=== PATIENT | female | born 1940 | race African-American/Black ===

== ENCOUNTER 2020-04-26 14:57 | Inpatient (IN) | payer MEDICARE, BC ==
[~2020-04-26] VITALS: Ht 162.6 cm; Wt 53.8 kg
--- NOTE | ~2020-04-26 | EMS ---
[facility] [address] [facility] [place] [place] [address] EMS Patient Care Report Name: JONATHON SPARKS Room: [address] IN .R.#: [id number] Admission: 04/26/20 Attend Phys: Sam Juárez MD Discharge: Date of : 36 Report #: [id number] THIS REPORT FOR: //name// Report Transmitted: 04/26/2020 19:17 EMS Care Summary [facility] Jessica [place] Incident [id number] @ 04/26/2020 14:05 Incident Location [address] [place] [address] Patient JONATHON SPARKS Female, 79 Years 1940 Patient Address [id number] [place] [id number] Patient History Cerebral infarction, unspecified, Patient Allergies , Patient Medications Vitamin D, Dexilant, zonisamide, , Levetiracetam, carvedilol, Alprazolam, Chief Complaint Weakness Disposition Transported No Lights/[place] Dispatch Reason Stroke/CVA Transported To [facility] Narrative [facility] RESPONDED TO A PRIVATE RESIDENCE FOR A FEMALE POSSIBLY HAVING A CVA. EMS ARRIVED ON SCENE TO FIND A FEMALE, SITTING ON THE EDGE OF HER BED, IN NO OBVIOUS DISTRESS. THE PATIENT WAS ACCOMPANIED BY HER DAUGHTER AND A FRIEND. THE DAUGHTER ADVISED THAT THE PATIENT HAD A STROKE IN DECEMBER. PATIENT WAS NORMALLY [address] [address] EMS Patient Care Report Name: JONATHON SPARKS Room: [address] IN [facility]#: [id number] Admission: 04/26/20 Attend Phys: Sam Juárez MD Discharge: Date of : 36 Report #: [id number] ALERT AND ORIENTED AFTER THE STROKE BUT WAS NOT ALERT OF YESTERDAY. PATIENT DENIED ANY CONFUSION. PATIENT'S ONLY COMPLAINT WAS WEAKNESS IN HER LEGS BUT SHE COULD NOT SPECIFY HOW LONG. SEE TX/RX FOR TREATMENTS RENDERED. PATIENT WAS ASSISTED TO HER FEET AND PLACED IN A STAIR CHAIR. PATIENT WAS SECURED TO THE COT VIA 3 SAFETY STRAPS. PATIENT TRANSPORTED TO [facility], PER HER REQUEST. PATIENT CONDITION DID NOT CHANGE EN ROUTE. PATIENT WAS TAKEN TO ED ROOM 11 UPON ARRIVAL. PATIENT WAS ASSISTED FROM EMS COT TO ED BED. PATIENT CARE REPORT WAS GIVEN AND CARE WAS TRANSFERRED. [facility] WENT BACK IN SERVICE. END OF REPORT. Initial Vitals @14:24 @14:27P: 74,R: 19,BP: 136/73, @14:38P: 76,R: 16,BP: 125/50, @14:44P: 75,R: 19,BP: 127/49, @14:27GCS: 15, @14:38GCS: 15, @14:44GCS: 15, @14:16 @14:38Glucose: 64, Assessments @14:16MENTAL:SKIN:HEENT:LUNG SOUNDS:ABDOMEN:PELVIS//GI:EXTREMITIES:PULSE:NEURO: Impression Generalized Weakness Procedures @14:35 cc () Site: Antecubital-LeftResponse: UnchangedSucceeded@14:243-Lead ECGResponse: UnchangedSucceeded Timeline 14:04,Call Received 14:04,Dispatch Notified 14:04,Psap Call 14:05,Dispatched 14:05,En Route 14:14,On Scene 14:16,At Patient 14:16,BP: / M,PULSE: ,RR: R,SPO2: Ox,ETCO2: ,BG: ,PAIN: ,GCS: , 14:24,3-Lead ECG,Response: UnchangedSucceeded, 14:24,BP: / M,PULSE: ,RR: R,SPO2: Ox,ETCO2: ,BG: ,PAIN: ,GCS: , 14:27,BP: 136/73 M,PULSE: 74,RR: 19 R,SPO2: Ox,ETCO2: ,BG: ,PAIN: ,GCS: , 14:27,BP: / M,PULSE: ,RR: R,SPO2: Ox,ETCO2: ,BG: ,PAIN: ,GCS: 15, 14:30,Depart Scene 14:35, cc [facility]Response: UnchangedSucceeded, [place] [address] EMS Patient Care Report Name: JONATHON SPARKS Room: [address] ADM IN M.R.#: [id number] Admission: 04/26/20 Attend Phys: Sam Juárez MD Discharge: Date of : 36 Report #: [id number] 14:38,BP: 125/50 M,PULSE: 76,RR: 16 R,SPO2: Ox,ETCO2: ,BG: ,PAIN: ,GCS: , 14:38,BP: / M,PULSE: ,RR: R,SPO2: Ox,ETCO2: ,BG: ,PAIN: ,GCS: 15, 14:38,BP: / M,PULSE: ,RR: R,SPO2: Ox,ETCO2: ,B,PAIN: ,GCS: , 14:44,BP: 127/49 M,PULSE: 75,RR: 19 R,SPO2: Ox,ETCO2: ,BG: ,PAIN: ,GCS: , 14:44,BP: / M,PULSE: ,RR: R,SPO2: Ox,ETCO2: ,BG: ,PAIN: ,GCS: 15, 14:52,At Destination 15:11,Call Closed Disclaimer v1.1 Copyright 2020 [employer] This EMS Care Summary contains data elements from the applicable legal record (which may be displayed differently). It is designed to provide pertinent information for the following purposes: continuity of care, clinical quality, and state data reporting. The complete legal record is available to ED staff and administrators of the receiving hospital in [employer] Patient Tracker. All data is provided "as is."
--- NOTE | ~2020-04-26 | CON ---
[address] [address] CONSULTATION Name: JONATHON SPARKS Room: [address] IN M.R.#: [id number] Admission: 04/26/20 Attend Phys: Sam Juárez MD Discharge: Date of : 36 Report #: [id number] THIS REPORT FOR: //name// cc: Riaz Saenz MD, Eric K. MD ~ THIS REPORT FOR: //name// CC: Sam Saenz DATE OF SERVICE: 04/28/2020 HISTORY OF PRESENT ILLNESS: This is an 79-year-old female patient who was discussed with Dr. Juárez. I tried to get the history from the patient, she was not very clear about the history. Ultimately, I was able to reach the patient's daughter. She provided some history. It looks like the patient had a subdural hematoma, which was drained by albertina holes in [facility]. She had some focal seizure and she was put on Keppra. She continued to be on Keppra and when she developed bladder infections, she feels very disoriented, confused and then she becomes better from that. This has been a consistent pattern. She was admitted with some weakness and lethargy. Apparently, her left arm hurts, but she can move. She is improved today. REVIEW OF SYSTEMS: A 14-point review of system was carried out. She had some confusion of the left elbow. At one time, she had pneumonia. Has a history of rheumatoid arthritis. Workup for some possible trauma was done in [facility], I do not have that workup available to me. She does have a chronic back pain. That is all the 14-point review of system I can get. PAST MEDICAL HISTORY: Positive for albertina hole and seizures. The seizure was in relation to the subdural hematoma. FAMILY HISTORY: Unremarkable. SOCIAL HISTORY: She does not drink any alcohol. PHYSICAL EXAMINATION: It was attempted, but was difficult to carry out. She wakes up, she talk some, she was partly oriented. Cranial nerve examination 2-12 was not optimal, but I do not see any focality. It looks like she can move both sides. She was not cooperative for the sensory and motor examinations. She did not relax for the reflexes. I do not see any meningeal sign in this patient. LABORATORY DATA: She did have a CT scan, which was reviewed and that does not show [place] [address] CONSULTATION Name: JONATHON SPARKS Room: [address] IN [facility]#: [id number] Admission: 04/26/20 Attend Phys: Sam Juárez MD Discharge: Date of : 36 Report #: [id number] IMPRESSION: Pretty difficult to form in this patient. I think we need a better examination of this patient now, we will try to do that tomorrow. We should continue Keppra for the time being and decide about other workup. I spent about 50 minutes of time taking care of this patient today and majority was spent counseling, coordinating and reviewing all the records in the computer. By: 1910 [id number] Harman MD /nt
[~2020-04-26 14:57] MED LIST: ASPIRIN325 PO; AUGMENTIN 875-1 EACH PO; AUGMENTIN 875875 MG PO; BENICAR20 MG PO; BENZONATATE200 MG PO; COLACE100 MG PO; COMPAZINE10 M1; COMPAZINE10 MG PO; DEXILANT60 MG PO; DULOXETINE HCL60 MG PO; EFFEXOR XR150 MG PO; EFFEXOR75 MG; FENTANYL 1100 MCG/HR TRANSDERM; FENTANYL PA12 MCG/H1 TP; FISH OIL 1,001000 M2 PO; FLAGYL500 MG PO; FLEXERIL; FOLIC ACID1 MG; FOLIC ACID1 MG PO; FUROSEMIDE 20 M20 MG PO; HYDROCODON-ACE1 EAC8 PO; HYDROXYCHLOROQ200 M1; IMURAN 50MG TAB50 M1 PO; KLOR-CON-EF 2525 ME1 PO; LIDOCAINE 22 %/30 GM; MAGNESIUM OXID200 MG PO; MEGA MULTI FOR1 EACH PO; METHOTREXATE 22.5 M1 PO; MICROZIDE12.5 MG PO; MIRALAX17 GM PO; OLMSRTN-AMLDPN1 EACH PO; PERIDEX15 ML PO; PHENERGAN25 MG RE; PREDNISOLON5 MG/5 ML; PREDNISONE ACETATE OPHTHALMIC; PROAIR DIGIHAL90 MCG INH; PROTONIX40 M2 PO; REFRESH CELLUVI1 APP OPHTHALMIC; REMICADE 1100 MG/VIA; REMICADE 1100 MG/VIA IV; TESSALON200 MG; TOBI PODHALER28 M1; TRIAMCINOLONE10 G1; TRIBENZOR 40-11 EAC1 PO; TYLENOL325 MG PO; VENLAFAXIN75 MG/1 T2 PO; VOLTAREN GEL 1100 G1 TOP; VOLTAREN75 MG; Vitamin D2 PO; XANAX 0.25 MG0.25 MG; XANAX 0.25 MG0.25 MG PO
[2020-04-26 14:59] VITALS: BP 133/66
[2020-04-26] MEDS ORDERED: ZONEGRAN100 MG PO (15:02)
[2020-04-26] MEDS ORDERED: SINGULAIR 10 MG10 MG PO (15:03)
[2020-04-26] MEDS ORDERED: KEPPRA1000 MG PO (15:03)
[2020-04-26] MEDS ORDERED: XANAX XR1 MG PO (15:04)
[2020-04-26] MEDS ORDERED: OXYTROL FOR WO1 EACH TRANSDERM (15:04)
[2020-04-26] MEDS ORDERED: CARVEDILOL6.25 M1 PO (15:04)
--- NOTE | 2020-04-26 16:07 | EKG ---
[place] [address] ELECTROCARDIOGRAM REPORT Name: JONATHON SPARKS Room: [facility].R.#: [id number] Admission: Attend Phys: Discharge: Date of : 36 Date of Service: 04/26/20 1525 Report #: [id number] THIS REPORT FOR: //name// [facility] ED Test Date: 2020-04-26 Test Time: 15:25:30 Pat Name: JONATHON SPARKS Department: Room: Gender: F Rn Acute Dialysis: : 1940 Requested By: Lizz Robles Order Number: [id number] MD: Monroe Hicks Measurements Intervals [place] Rate: 73 P: 23 DE: 181 QRS: -43 QRSD: 85 T: 82 QT: 351 QTc: 387 Interpretive Statements Sinus rhythm Probable left atrial enlargement Left ventricular hypertrophy Inferior infarct, old Anterior Q waves, possibly due to LVH No previous ECG available for comparison Electronically Signed On 04-26-2020 16:06:49 CDT by Monroe Hicks [email or web address] <ELECTRONICALLY SIGNED> By: Monroe Hicks MD, [facility] 04/26/20 1606 1525 1525 Monroe Hicks MD, [facility] /EPI
[2020-04-26 16:16] LABS: ABSOLUTE BASOPHILS 0.1 thou/uL (0.0-0.2); ABSOLUTE EOSINOPHILS 0.4 thou/uL (0.0-0.7); ABSOLUTE LYMPHOCYTES 1.6 thou/uL (0.8-5.3); ABSOLUTE MONOCYTES 0.6 thou/uL (0.0-1.2); ABSOLUTE NEUTROPHILS 3.4 thou/uL (1.6-8.1); BASOPHILS 1.2 %; HEMATOCRIT 33.6 % (37.0-47.0); HEMOGLOBIN 10.9 gm/dL (12.0-15.0); LYMPHOCYTES 26.5 %; MCH 25.4 pg (26.0-34.0); MCHC 32.5 g/dL (28.0-37.0); MCV 78.3 fL (80.0-100.0); MONOCYTES 10.4 %; MPV 8.6 fl. (7.2-11.1); NUCLEATED RBCS 0 /100WBC; PLATELET COUNT* 207 thou/uL (150-400); POLYS 55.9 %; RBC 4.29 mil/uL (4.20-5.00); RDW-CV 14.3 % (10.5-14.5)
[2020-04-26 16:24] LABS: CALCIUM 9.3 mg/dL (8.5-10.1); CREATININE 0.9 mg/dL (0.6-1.3); POTASSIUM 3.1 mmol/L (3.5-5.1)
[2020-04-26 16:29] LABS: ALBUMIN 2.1 g/dL (3.4-5.0); TOTAL BILIRUBIN 0.3 mg/dL (<0.1-1.0); TOTAL PROTEIN 8.5 g/dL (6.4-8.2)
[2020-04-26 16:37] LABS: ACETAMINOPHEN < 2 ug/mL (10-30); ALCOHOL < 10 mg/dL (<10); SALICYLATE < 2.8 mg/dL (2.8-20.0)
[2020-04-26 16:46] LABS: URINE BILIRUBIN NEGATIVE (Negative); URINE BLOOD NEGATIVE (Negative); URINE CLARITY CLEAR; URINE COLOR YELLOW; URINE GLUCOSE-RANDOM NEGATIVE (Negative); URINE KETONES NEGATIVE (Negative); URINE LEUKOCYTES-REFLEX NEGATIVE (Negative); URINE NITRITE-REFLEX NEGATIVE (Negative); URINE PROTEIN NEGATIVE (Negative); URINE UROBILINOGEN 0.2 E.U./dl (0.2-1.0)
[2020-04-26 16:55] LABS: AMP/METHAMP Negative (Negative); BARBITURATES Negative (Negative); BENZODIAZEPINES POSITIVE (Negative); COCAINE Negative (Negative); METHADONE Negative (Negative); OPIATES Negative (Negative); PCP Negative (Negative); THC Negative (Negative)
[2020-04-26 21:51] VITALS: BP 165/75
[2020-04-26 22:06] LABS: CALCIUM 8.7 mg/dL (8.5-10.1); CREATININE 0.8 mg/dL (0.6-1.3); POTASSIUM 3.4 mmol/L (3.5-5.1)
[2020-04-26 23:02] VITALS: BP 172/85
[2020-04-27 04:00] VITALS: BP 235/126
[2020-04-27 08:00] VITALS: BP 162/80
[2020-04-27 11:27] LABS: ABSOLUTE MONOCYTES 0.5 thou/uL (0.0-1.2); ABSOLUTE NEUTROPHILS 8.4 thou/uL (1.6-8.1); BASOPHILS 0.5 %; EOSINOPHILS 0.1 %; HEMATOCRIT 37.5 % (37.0-47.0); HEMOGLOBIN 12.5 gm/dL (12.0-15.0); LYMPHOCYTES 9.7 %; MCH 26.2 pg (26.0-34.0); MCHC 33.4 g/dL (28.0-37.0); MCV 78.3 fL (80.0-100.0); MONOCYTES 4.9 %; MPV 8.1 fl. (7.2-11.1); NUCLEATED RBCS 0 /100WBC; PLATELET COUNT* 262 thou/uL (150-400); POLYS 84.8 %; RBC 4.79 mil/uL (4.20-5.00); RDW-CV 14.2 % (10.5-14.5); WBC 9.9 thou/uL (4.0-11.0)
[2020-04-27 11:48] LABS: CALCIUM 9.4 mg/dL (8.5-10.1); CREATININE 0.9 mg/dL (0.6-1.3); POTASSIUM 3.1 mmol/L (3.5-5.1)
[2020-04-27 12:08] VITALS: BP 177/94
[2020-04-27 16:00] VITALS: BP 196/103
[2020-04-27 19:35] VITALS: BP 188/102
[2020-04-28] VITALS: BP 127/67
[2020-04-28 04:00] VITALS: BP 112/60
[2020-04-28 05:42] LABS: ABSOLUTE LYMPHOCYTES 1.9 thou/uL (0.8-5.3); ABSOLUTE MONOCYTES 0.9 thou/uL (0.0-1.2); ABSOLUTE NEUTROPHILS 6.6 thou/uL (1.6-8.1); BASOPHILS 0.5 %; EOSINOPHILS 0.1 %; HEMATOCRIT 35.4 % (37.0-47.0); HEMOGLOBIN 11.6 gm/dL (12.0-15.0); LYMPHOCYTES 20.1 %; MCH 25.5 pg (26.0-34.0); MCHC 32.8 g/dL (28.0-37.0); MCV 77.7 fL (80.0-100.0); MONOCYTES 9.7 %; MPV 8.3 fl. (7.2-11.1); NUCLEATED RBCS 0 /100WBC; PLATELET COUNT* 248 thou/uL (150-400); POLYS 69.6 %; RBC 4.56 mil/uL (4.20-5.00); WBC 9.5 thou/uL (4.0-11.0)
[2020-04-28 06:06] LABS: ALBUMIN 1.9 g/dL (3.4-5.0); CALCIUM 9.3 mg/dL (8.5-10.1); CREATININE 1.2 mg/dL (0.6-1.3); TOTAL BILIRUBIN 0.3 mg/dL (<0.1-1.0); TOTAL PROTEIN 8.3 g/dL (6.4-8.2)
[2020-04-28 06:08] LABS: POTASSIUM 5.8 mmol/L (3.5-5.1)
[2020-04-28 08:00] VITALS: BP 115/57
[2020-04-28 12:00] VITALS: BP 109/55
[2020-04-28 16:03] VITALS: BP 124/60
[2020-04-28 19:30] VITALS: BP 100/49
[2020-04-29 00:26] VITALS: BP 121/53
[2020-04-29 04:44] VITALS: BP 120/60
[2020-04-29 04:55] LABS: ABSOLUTE EOSINOPHILS 0.2 thou/uL (0.0-0.7); ABSOLUTE LYMPHOCYTES 1.9 thou/uL (0.8-5.3); ABSOLUTE MONOCYTES 0.6 thou/uL (0.0-1.2); ABSOLUTE NEUTROPHILS 3.1 thou/uL (1.6-8.1); BASOPHILS 0.6 %; EOSINOPHILS 3.5 %; HEMATOCRIT 29.9 % (37.0-47.0); HEMOGLOBIN 9.9 gm/dL (12.0-15.0); LYMPHOCYTES 32.2 %; MCH 25.7 pg (26.0-34.0); MCHC 33.2 g/dL (28.0-37.0); MCV 77.5 fL (80.0-100.0); NUCLEATED RBCS 0 /100WBC; PLATELET COUNT* 177 thou/uL (150-400); POLYS 53.7 %; RBC 3.86 mil/uL (4.20-5.00); RDW-CV 13.9 % (10.5-14.5); WBC 5.8 thou/uL (4.0-11.0)
[2020-04-29 05:16] LABS: ALBUMIN 1.7 g/dL (3.4-5.0); CALCIUM 9.1 mg/dL (8.5-10.1); CREATININE 1.3 mg/dL (0.6-1.3); TOTAL BILIRUBIN 0.4 mg/dL (<0.1-1.0); TOTAL PROTEIN 7.3 g/dL (6.4-8.2)
[2020-04-29 05:37] LABS: PREALBUMIN 10.6 mg/dL (18.0-35.7)
[2020-04-29 08:00] VITALS: BP 124/65
[2020-04-29 20:00] VITALS: BP 146/67
[2020-04-30] VITALS: BP 137/60
[2020-04-30 05:48] LABS: CALCIUM 8.4 mg/dL (8.5-10.1); POTASSIUM 3.6 mmol/L (3.5-5.1)
[2020-04-30 06:34] LABS: ESR (SEDRATE) 40 mm/hr (0-30)
[2020-04-30 06:38] LABS: ABSOLUTE EOSINOPHILS 0.4 thou/uL (0.0-0.7); ABSOLUTE MONOCYTES 0.4 thou/uL (0.0-1.2); ABSOLUTE NEUTROPHILS 1.8 thou/uL (1.6-8.1); BASOPHILS 0.7 %; EOSINOPHILS 8.4 %; HEMATOCRIT 28.5 % (37.0-47.0); HEMOGLOBIN 9.3 gm/dL (12.0-15.0); LYMPHOCYTES 42.2 %; MCH 25.3 pg (26.0-34.0); MCHC 32.7 g/dL (28.0-37.0); MCV 77.3 fL (80.0-100.0); MONOCYTES 9.2 %; MPV 9.6 fl. (7.2-11.1); NUCLEATED RBCS 0 /100WBC; PLATELET COUNT* 167 thou/uL (150-400); POLYS 39.5 %; RBC 3.69 mil/uL (4.20-5.00); RDW-CV 13.7 % (10.5-14.5); WBC 4.7 thou/uL (4.0-11.0)
[2020-04-30 08:00] VITALS: BP 142/67
[2020-04-30] MEDS ORDERED: XANAX 0.25 MG0.25 MG PO (08:51)
[2020-04-30] MEDS ORDERED: LEVAQUIN 500 M500 M2 PO (08:51)
[2020-04-30 16:29] VITALS: BP 142/67
[2020-04-30 16:44] VITALS: BP 142/67
== END 2020-04-30 18:00 | DRG 177 ==
LOC: M.ERS 14:57 → M.TBA-ER 18:21 → M.2W 18:21 → M.ORTHSURG 04-30 11:24
PROVIDERS: Nurse Practitioner Family; ADMIT Internal Medicine; ATTEND Internal Medicine
DX: J69.0 Pneumonitis due to inhalation of food and vomit (principal); E43 Unspecified severe protein-calorie malnutrition; G93.41 Metabolic encephalopathy; G95.89 Other specified diseases of spinal cord; G89.29 Other chronic pain; I16.0 Hypertensive urgency; R33.9 Retention of urine, unspecified; M54.9 Dorsalgia, unspecified; Z20.828 Contact with and (suspected) exposure to other viral communicable diseases; M06.9 Rheumatoid arthritis, unspecified; I10 Essential (primary) hypertension; T42.6X5A Adverse effect of other antiepileptic and sedative-hypnotic drugs, initial encounter; Y92.89 Other specified places as the place of occurrence of the external cause; Z79.899 Other long term (current) drug therapy; Z88.5 Allergy status to narcotic agent; Z88.1 Allergy status to other antibiotic agents; Z88.2 Allergy status to sulfonamides; Z68.20 Body mass index [BMI] 20.0-20.9, adult; Z86.73 Personal history of transient ischemic attack (TIA), and cerebral infarction without residual deficits

== ENCOUNTER 2020-04-30 14:53 | Inpatient (IN) | payer MEDICARE, BC ==
[~2020-04-30] VITALS: Ht 162.6 cm; Wt 54.6 kg
[~2020-04-30 14:53] MED LIST changes: +CARVEDILOL6.25 M1 PO; +KEPPRA1000 MG PO; +LEVAQUIN 500 M500 M2 PO; +OXYTROL FOR WO1 EACH TRANSDERM; +SINGULAIR 10 MG10 MG PO; +XANAX XR1 MG PO; +ZONEGRAN100 MG PO
[2020-04-30 18:48] VITALS: BP 143/69
[2020-04-30 20:00] VITALS: BP 166/71
[2020-05-01 04:04] LABS: HEMATOCRIT 30.1 % (37.0-47.0); HEMOGLOBIN 9.8 gm/dL (12.0-15.0); MCH 24.9 pg (26.0-34.0); MCHC 32.5 g/dL (28.0-37.0); MCV 76.7 fL (80.0-100.0); MPV 7.8 fl. (7.2-11.1); RBC 3.92 mil/uL (4.20-5.00); RDW-CV 13.7 % (10.5-14.5); WBC 4.5 thou/uL (4.0-11.0)
[2020-05-01 04:24] LABS: CALCIUM 8.8 mg/dL (8.5-10.1); CREATININE 0.9 mg/dL (0.6-1.3); POTASSIUM 3.4 mmol/L (3.5-5.1)
[2020-05-01 20:24] VITALS: BP 125/68
[2020-05-02 08:30] VITALS: BP 143/62
[2020-05-02 19:00] VITALS: BP 129/72
[2020-05-03 07:56] VITALS: BP 125/69
[2020-05-03 19:00] VITALS: BP 134/74
[2020-05-04 07:57] VITALS: BP 130/68
[2020-05-04 19:00] VITALS: BP 123/68
[2020-05-05 08:11] VITALS: BP 123/48
[2020-05-05 19:30] VITALS: BP 123/57
[2020-05-06 08:00] VITALS: BP 131/59
[2020-05-06 19:58] VITALS: BP 136/77
[2020-05-07 07:30] VITALS: BP 134/70
[2020-05-07 13:25] LABS: HEMATOCRIT 30.5 % (37.0-47.0); HEMOGLOBIN 10.1 gm/dL (12.0-15.0); MCH 25.4 pg (26.0-34.0); MCHC 33.1 g/dL (28.0-37.0); MCV 76.7 fL (80.0-100.0); MPV 7.6 fl. (7.2-11.1); RBC 3.98 mil/uL (4.20-5.00); RDW-CV 13.9 % (10.5-14.5); WBC 5.9 thou/uL (4.0-11.0)
[2020-05-07 13:52] LABS: ALBUMIN 2.1 g/dL (3.4-5.0); CALCIUM 9.4 mg/dL (8.5-10.1); CREATININE 0.9 mg/dL (0.6-1.3); POTASSIUM 4.3 mmol/L (3.5-5.1); TOTAL BILIRUBIN 0.3 mg/dL (<0.1-1.0); TOTAL PROTEIN 7.8 g/dL (6.4-8.2)
[2020-05-07 20:12] VITALS: BP 141/63
[2020-05-08 07:30] VITALS: BP 129/62
[2020-05-08 08:00] VITALS: BP 129/62
[2020-05-08 20:13] VITALS: BP 128/60
[2020-05-09 07:30] VITALS: BP 134/70
[2020-05-09 08:00] VITALS: BP 134/70
[2020-05-09 19:23] VITALS: BP 129/53
[2020-05-10 07:30] VITALS: BP 131/85
[2020-05-10 10:58] LABS: URINE BILIRUBIN NEGATIVE (Negative); URINE BLOOD 2+ (Negative); URINE CLARITY CLEAR; URINE COLOR YELLOW; URINE GLUCOSE-RANDOM NEGATIVE (Negative); URINE KETONES NEGATIVE (Negative); URINE LEUKOCYTES-REFLEX TRACE (Negative); URINE NITRITE-REFLEX NEGATIVE (Negative); URINE PROTEIN NEGATIVE (Negative); URINE SPECIFIC GRAVITY 1.015 (1.005-1.030); URINE UROBILINOGEN 0.2 E.U./dl (0.2-1.0)
[2020-05-10 11:09] LABS: HEMATOCRIT 29.8 % (37.0-47.0); HEMOGLOBIN 9.8 gm/dL (12.0-15.0); MCH 25.1 pg (26.0-34.0); MCHC 32.9 g/dL (28.0-37.0); MCV 76.4 fL (80.0-100.0); MPV 8.1 fl. (7.2-11.1); RBC 3.9 mil/uL (4.20-5.00); RDW-CV 13.7 % (10.5-14.5); WBC 6.7 thou/uL (4.0-11.0)
[2020-05-10 11:17] LABS: BACTERIA-REFLEX 1-9 Few /HPF (None Seen); CASTS None Seen /LPF (None Seen); CRYSTALS None Seen /LPF (None Seen); MUCUS None Seen strn/LPF (None Seen); SQUAMOUS 0-3 Few /LPF (0-3); URINE RBC 3-10 Few /HPF (0-2); URINE WBC-REFLEX 0-5 Rare /HPF (0-5)
[2020-05-10 20:00] VITALS: BP 121/61
[2020-05-11 07:30] VITALS: BP 136/69
[2020-05-11 20:00] VITALS: BP 133/64
[2020-05-12 07:50] VITALS: BP 141/70
[2020-05-12 20:00] VITALS: BP 144/67
[2020-05-13 08:00] VITALS: BP 131/65
[2020-05-13 20:08] VITALS: BP 136/61
[2020-05-14 08:29] VITALS: BP 125/65
[2020-05-14 20:00] VITALS: BP 143/72
[2020-05-15 08:00] VITALS: BP 142/69
[2020-05-15 10:52] VITALS: BP 142/69
== END 2020-05-15 16:30 | disposition home health service (06) | DRG 70 ==
LOC: M.REH 14:53
PROVIDERS: ADMIT Physical Medicine & Rehabilitation; ATTEND Physical Medicine & Rehabilitation
DX: G93.41 Metabolic encephalopathy (principal); J69.0 Pneumonitis due to inhalation of food and vomit; E43 Unspecified severe protein-calorie malnutrition; J96.90 Respiratory failure, unspecified, unspecified whether with hypoxia or hypercapnia; A41.9 Sepsis, unspecified organism; N39.0 Urinary tract infection, site not specified; M06.9 Rheumatoid arthritis, unspecified; I10 Essential (primary) hypertension; G89.29 Other chronic pain; M54.9 Dorsalgia, unspecified; I16.0 Hypertensive urgency; R33.9 Retention of urine, unspecified; Z88.6 Allergy status to analgesic agent; Z88.2 Allergy status to sulfonamides; Z88.1 Allergy status to other antibiotic agents; Z79.899 Other long term (current) drug therapy